=== PATIENT | female | born 1990 | race Caucasian/White ===

== ENCOUNTER 2016-10-29 19:41 | Emergency (ER) | payer OTHER ==
[~2016-10-29] VITALS: Ht 170.2 cm; Wt 50.0 kg
[2016-10-29] MEDS ORDERED: LORAZEPAM 2 MG INJ IM STA (20:13)
[2016-10-29 20:30] VITALS: Ht 170.2 cm; Wt 50.0 kg
[2016-10-29 21:34] LABS: BASOPHILS % 0.8 % (0.0-2.0); EOSINOPHILS # 0.4 10^3/ul (0.0-0.5); EOSINOPHILS % 7.1 % (0.0-7.0); HEMATOCRIT 35.9 % (37.0-47.0); HEMOGLOBIN 11.9 g/dl (12.0-16.0); LYMPHOCYTES # 2.2 10^3/ul (0.8-2.9); LYMPHOCYTES % 45.1 % (15.0-51.0); MEAN CORPUSCULAR HEMOGLOBIN 32.9 pg (29.0-33.0); MEAN CORPUSCULAR HGB CONC 33.1 g/dl (32.0-37.0); MEAN CORPUSCULAR VOLUME 99.2 fl (82.0-101.0); MEAN PLATELET VOLUME 9.4 fl (7.4-10.4); MONOCYTE # 0.4 10^3/ul (0.3-0.9); MONOCYTES % 7.1 % (0.0-11.0); NEUTROPHILS % 39.9 % (39.0-77.0); PLATELET COUNT 216 10^3/UL (140-415); RED BLOOD COUNT 3.62 10^6/ul (4.20-5.40); RED CELL DISTRIBUTION WIDTH 12.1 % (11.5-14.5); WHITE BLOOD COUNT 4.9 10^3/ul (4.8-10.8)
--- NOTE | 2016-10-29 21:40 | PSY ---
Date/Time of Note Date/Time of Note DATE: 10/29/16 TIME: 21:32 Psychiatric Subjective Eval Consent Pt consented to telemedicine: Yes Subjective Evaluation Patient location: emergency Chief Complaint: ALCOHOL INTOXICATION, PATIENT STATED "SHE SAW A BODY IN THE STREET" Reason for consult: Alcohol Intoxication History of present illness Pt reports that she was brought into the ER because she fell. She cannot provide any details others that someone called 911. When asked why she was in restraints, patient reported that "they asked me to get in them." Pt states she is not seeing bodies but her friend in a car accident last night. She admits to drug use - "I can't stop drinking." Pt appears intoxicated. She remains restrained. She denies all symptoms because she would like to be released so she can return to her home. She states "I am not a 5150." Past psychiatric history Pt had a three month stay at [facility] for trauma related issues. Was evasive about any other psychiatric admissions. Hospitalization: yes Family History Denies Medical history Denies Allergies: Coded Allergies: No Known Allergy (Unverified , 10/29/16) Substance Abuse Substance abuse history: Yes (Alcohol meth) Social History Marital status: single Level of education: Unk DPA/Conservatorship: No Occupation/Mcc: Not known Psychiatric Objective Eval Mental Status Examination: Appearance: Disheveled Eye Contact: Fair Psychomotor Activity: Agitated Behavior: Guarded Speech: Clear AFFECT: Anxious Mood: Anxious Though Process: Perseverative Thought Content: Normal Suicidal: No Homicidal: No On 72 hour hold: No Orientation: x3 Cognition: Alert Insight: Impared Judgement: Impared Laboratory Results Laboratory Tests Test 10/29/16 20:58 Assessment and Plan Assessment/Diagnosis [place] I: Alcohol Intoxication, report of PTSD by patient Recommendation/Plan Medication Management No medication recommendations at this time. Psychotherapy N/A Pt. Caregiver/Family Education N/A Follow-up/Disposition Pt is probably too intoxicated at this time to clear. She does not appear psychotic but her mental process is influenced by whatever drugs she used today. While she reports that she can return home, she is not able to provide a coherent narrative on how she came to the ER and what her next steps for self care are. Consider holding patient in ER and re-evaluating in AM as she may clear up and be ready for discharge if alcohol/drug related. However, if not possible, can recommend 5150 on GD. 5150 Recommendation: ARABELLA PERSAUD Oct 29, 2016 21:40
[2016-10-29 21:53] LABS: ALANINE AMINOTRANSFERASE 82 IU/L (13-69); ALBUMIN 3.5 g/dl (3.3-4.9); ALBUMIN/GLOBULIN RATIO 0.92; ALKALINE PHOSPHATASE 107 IU/L (42-121); ANION GAP 15 (8-16); ASPARTATE AMINO TRANSFERASE 183 IU/L (15-46); BILIRUBIN,INDIRECT 0.1 mg/dl (0-1.1); BILIRUBIN,TOTAL 0.1 mg/dl (0.2-1.3); BLOOD UREA NITROGEN 12 mg/dl (7-20); CALCIUM 8.3 mg/dl (8.4-10.2); CARBON DIOXIDE 21 mmol/L (21-31); CHLORIDE 110 mmol/L (97-110); CREATININE 0.58 mg/dl (0.44-1.00); GLUCOSE 161 mg/dl (70-220); POTASSIUM 3.2 mmol/L (3.5-5.1); SODIUM 143 mmol/L (135-144); TOTAL PROTEIN 7.3 g/dl (6.1-8.1)
[2016-10-29 21:54] LABS: ACETAMINOPHEN < 10.0 ug/ml (10.0-30.0)
[2016-10-29 21:55] LABS: SALICYLATE < 1.0 mg/dl (5.0-30.0)
[2016-10-29 22:49] LABS: ADD UMIC NO; UR ASCORBIC ACID NEGATIVE (NEGATIVE); UR BILIRUBIN (Dip) NEGATIVE (NEGATIVE); UR BLOOD (Dip) NEGATIVE (NEGATIVE); UR CLARITY SLIGHTLY CLOUDY (CLEAR); UR COLOR YELLOW (YELLOW); UR GLUCOSE (Dip) NEGATIVE (NEGATIVE); UR KETONES (Dip) NEGATIVE (NEGATIVE); UR LEUKOCYTE ESTERASE (Dip) NEGATIVE Leu/ul (NEGATIVE); UR NITRITE (Dip) NEGATIVE (NEGATIVE); UR RBC 2 /HPF (0-5); UR TOTAL PROTEIN (Dip) NEGATIVE (NEGATIVE); UR UROBILINOGEN (Dip) 1+ mg/dL (NEGATIVE)
[2016-10-29 22:58] LABS: BARBITURATES Negative (NEGATIVE); BENZODIAZEPINES Negative (NEGATIVE); CANNABINOIDS Positive (NEGATIVE); COCAINE Negative (NEGATIVE); OPIATES Negative (NEGATIVE)
--- NOTE | 2016-10-29 23:12 | ERA ---
ER Documentation Chief Complaint Date/Time DATE: 10/29/16 TIME: 23:08 Chief Complaint ALCOHOL INTOXICATION, PATIENT STATED "SHE SAW A BODY IN THE STREET" HPI 26-year-old woman brought in by EMS for the second time today after drinking alcohol and using methamphetamines, she does have this history of psychiatric illness as well and admits to seeing people in constantly speaks about and dying. Patient had to be restrained in route because of agitation and combative behavior. She denies fevers or chills, no seizure activity, no vomiting or diarrhea. ROS All systems reviewed and are negative except as per history of present illness. Medications Home Meds No Active Prescriptions or Reported Meds Allergies Allergies: Coded Allergies: No Known Allergy (Unverified , 10/29/16) PMhx/Soc Medical and Surgical Hx: Unable to obtain Hx Alcohol Use: Yes (DAILY) Hx Substance Use: Yes (METHAMPHETAMINE) Hx Tobacco Use: No Smoking Status: Current some day smoker FmHx Family History: No diabetes Physical Exam Vitals Vital Signs Date Time Temp Pulse Resp B/P Pulse Ox O2 Delivery O2 Flow Rate FiO2 10/30/16 10:05 77 12 125/85 98 Room Air 10/30/16 09:10 71 16 118/71 99 Room Air 10/30/16 05:40 72 16 114/76 99 Room Air 10/30/16 03:23 69 18 117/82 98 Room Air 10/30/16 00:15 73 16 118/63 100 Room Air 10/29/16 21:40 76 18 134/73 99 Room Air 10/29/16 20:30 98.9 91 17 126/75 95 Physical Exam GENERAL: Well-developed, well-nourished, agitated and combative HEENT: Moist mucous membranes, pink conjunctiva, no cervical spine tenderness or step-off deformities, no goiter, no jaundice or icterus, extraocular movements intact without pain. No submandibular induration, and no pharyngeal erythema NEURO: Alert and oriented 3, cranial nerves II through XII intact bilaterally, pupils equal round reactive to light, no focal deficits or facial asymmetry, sensation intact distally Strength 5/5 in upper and lower extremities bilaterally CARDIAC: Tachycardic and regular, no murmurs rubs or gallops LUNGS: Clear bilaterally no wheezing crackles or stridor ABDOMEN: Soft nontender, no guarding, no rigidity, no rebound, no psoas sign no obturator sign. Normoactive bowel sounds SKIN: Warm and dry to touch, no abrasions, contusions, or hematomas, no lacerations, no ecchymosis, no target lesions, and without ulcers EXTREMITIES: No clubbing cyanosis or edema, calves are bilaterally symmetrical, no Homans sign, no popliteal cord sign. Distal pulses equal and bilateral PSYCH: Agitated and combative Result Diagram: 10/29/16205710/29/162057 Results 24 hrs Laboratory Tests Test 10/29/16 20:58 10/29/16 22:10 10/30/16 07:15 White Blood Count 4.910^3/ul Red Blood Count 3.6210^6/ul Hemoglobin 11.9g/dl Hematocrit 35.9% Mean Corpuscular Volume 99.2fl Mean Corpuscular Hemoglobin 32.9pg Mean Corpuscular Hemoglobin Concent 33.1g/dl Red Cell Distribution Width 12.1% Platelet Count 63769^3/UL Mean Platelet Volume 9.4fl Neutrophils % 39.9% Lymphocytes % 45.1% Monocytes % 7.1% Eosinophils % 7.1% Basophils % 0.8% Nucleated Red Blood Cells % 0.0/100WBC Neutrophils # (Manual) 2.010^3/ul Lymphocytes # 2.210^3/ul Monocytes # 0.410^3/ul Eosinophils # 0.410^3/ul Basophils # 0.010^3/ul Nucleated Red Blood Cells # 0.010^3/ul Sodium Level 143mmol/L Potassium Level 3.2mmol/L Chloride Level 110mmol/L Carbon Dioxide Level 21mmol/L Anion Gap 15 Blood Urea Nitrogen 12mg/dl Creatinine 0.58mg/dl Glucose Level 161mg/dl Calcium Level 8.3mg/dl Total Bilirubin 0.1mg/dl Direct Bilirubin 0.00mg/dl Indirect Bilirubin 0.1mg/dl Aspartate Amino Transf (AST/SGOT) 183IU/L Alanine Aminotransferase (ALT/SGPT) 82IU/L Alkaline Phosphatase 107IU/L Total Protein 7.3g/dl Albumin 3.5g/dl Globulin 3.80g/dl Albumin/Globulin Ratio 0.92 Salicylates Level < 1.0mg/dl Acetaminophen Level < 10.0ug/ml Ethyl Alcohol Level 186.0mg/dl < 10.0mg/dl Urine Color YELLOW Urine Clarity SLIGHTLY CLOUDY Urine pH 6.0 Urine Specific [place] 1.020 Urine Ketones NEGATIVEmg/dL Urine Nitrite NEGATIVEmg/dL Urine Bilirubin NEGATIVEmg/dL Urine Urobilinogen 1+mg/dL Urine Leukocyte Esterase NEGATIVELeu/ul Urine Microscopic RBC 2/HPF Urine Microscopic WBC 2/HPF Urine Hemoglobin NEGATIVEmg/dL Urine Glucose NEGATIVEmg/dL Urine Total Protein NEGATIVEmg/dl Urine Opiates Screen Negative Urine Barbiturates Negative Urine Amphetamines Screen POSITIVE Urine Benzodiazepines Screen Negative Urine Cocaine Screen Negative Urine Cannabinoids Positive Current Medications Medications (Trade) Dose Ordered Sig/Aurelio Route PRN Reason Start Time Stop Time Status Last Admin Dose Admin Lorazepam (Ativan) 1 mg ONCE STAT IM 10/29/16 20:13 10/29/16 20:15 DC Procedures/MDM Security one-to-one watch was established and tele-psychiatry was contacted, recommendation was gravely disabled and hold for 5150. Urine drug screen positive for amphetamines, test negative, CBC and electrolytes were unremarkable, liver function tests normal, Ethanol level elevated at 186. Patient's behavioral symptoms have stabilized while in the department. Patient is medically cleared and appropriate for psychiatric evaluation and work up. No e/o neurologic, toxic, infectious, or metabolic cause. I administered lorazepam 1 mg p.o. for agitation. Patient will be transferred to [facility] facility pending psychiatric evaluation.Patient signed out pending psychiatric evaluation. Departure Diagnosis: Primary Impression: Alcoholic intoxication Qualified Code: F10.920 - Alcoholic intoxication without complication Additional Impressions: Methamphetamine abuse Psychosis Qualified Code: F29 - Psychosis, unspecified psychosis type Condition: Stable KELLY WILSON MD Oct 29, 2016 23:12
--- NOTE | 2016-10-30 05:18 | QN ---
Documentation Comment Observation Note: Time: For hours Family Hx: No Hypertension Evaluation: Multiple exams showed improving symptoms and no evidence of deterioration] ISAIAH DING Oct 30, 2016 05:18
--- NOTE | 2016-10-30 09:32 | QN ---
Documentation Comment Patient is a 26-year-old female who presents with alcohol intoxication. She was seen by the PMR T pants presser automatic from psychiatry who does not feel she requires a 5150 hold. The patient will be discharged with information for the local substance abuse treatment centers. She can return for any worsening symptoms. PEYTON DOAN MD Oct 30, 2016 09:32
[2016-10-30 10:05] VITALS: BP 125/85; PULSE 77; RESP 12
== END 2016-10-30 10:05 | disposition short-term general hospital (02) ==
LOC: E/R 19:41
DX: F10.920 Alcohol use, unspecified with intoxication, uncomplicated (principal); F15.10 Other stimulant abuse, uncomplicated; F29 Unspecified psychosis not due to a substance or known physiological condition; F17.210 Nicotine dependence, cigarettes, uncomplicated; R40.2142 Coma scale, eyes open, spontaneous, at arrival to emergency department; R40.2242 Coma scale, best verbal response, confused conversation, at arrival to emergency department; R40.2362 Coma scale, best motor response, obeys commands, at arrival to emergency department
CPT/HCPCS: 80053; 80306; 80307; 81001; 81003; 85025